=== PATIENT | male | born 1985 | race Caucasian/White ===

== ENCOUNTER 2018-09-12 18:13 | Emergency (ER) | payer OTHER ==
[2018-09-12 18:16] VITALS: BMI 26.2
[2018-09-12 18:20] VITALS: BP 130/71; PULSE 60; TEMP 98.3
[2018-09-12] MEDS ORDERED: morphine CARPU-JECT 4 MG/1 ML DISP.SYRIN IVPUSH ONE (18:21)
[2018-09-12] MEDS ORDERED: PIPERACILLIN/TAZOB 4.5 GM 4.5 GM in DEXTROSE 5%-WATER 100 ML IVPB ONE (18:21)
[2018-09-12] MEDS ORDERED: PIPERACILLIN/TAZOBACTAM 4.5 GM VIAL IVPB ONE (18:25)
[2018-09-12] MEDS ORDERED: IBUPROFEN 600 MG TABLET (FP) PO ONE ×2 (18:31→18:50)
--- NOTE | 2018-09-12 18:38 | PDOC ---
History of Present Illness - General History Source: Patient <Kirsty Quiroga - Last Filed: 09/12/18 18:47> - General History Source: Patient Exam Limitations: No Limitations - History of Present Illness Initial Comments: 09/12/18 18:56 The patient is a 33 year old male with no significant past medical history, who presents to the emergency department today with multiple puncture wounds on his left palm and wrist after getting bitten by a pitbull while at work this evening. 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 Immediately after the injury, the patient washed the wounds with hand soap and rinsed with iodine before applying a pressure wrap. The patient reports some numbness to the thumb, first, and second fingers. He notes some swelling and has been applying ice. The patients last tetanus shot was on May 20 2011. He is very familiar with this dog who is a family pet and sees him regularly at the vet office. The dog is up to date on all his immunizations. Denies any fever, chills, nausea, vomiting. Denies lightheadedness, dizziness, chest pain. Allergies: NKA <Sultana Ann - Last Filed: 09/12/18 18:57> - General Chief Complaint: Bite Stated Complaint: DOG BITE Time Seen by Provider: 09/12/18 18:21 Past History - Past Medical History COPD: No - Suicide/Smoking/Psychosocial Hx Smoking History: Never smoked Hx Alcohol Use: Yes Drug/Substance Use Hx: No Substance Use Type: Alcohol <Kirsty Quiroga - Last Filed: 09/12/18 18:47> <Sultana Ann - Last Filed: 09/12/18 18:57> - Past Medical History Allergies/Adverse Reactions: Allergies Allergy/AdvReac Type Severity Reaction Status Date / Time No Known Allergies Allergy Verified 09/12/18 18:13 Home Medications: Ambulatory Orders Amoxicillin/Potassium Clav [Augmentin 875-125 Tablet] 1 each PO BID #20 tablet 09/12/18 Ibuprofen 600 mg PO QID PRN #30 tablet 09/12/18 Sulfamethoxazole/Trimethoprim [Bactrim Ds Tablet] 1 each PO BID #20 tablet 09/12 Review of Systems - Review of Systems Able to Perform ROS?: Yes Comments:: 09/12/18 18:56 See HPI. All other systems reviewed and unremarkable <Sultana Ann - Last Filed: 09/12/18 18:57> *Physical Exam - Vital Signs Last Vital Signs Temp Pulse Resp BP Pulse Ox 98.3 F 60 16 130/71 100 09/12/18 18:13 09/12/18 18:13 09/12/18 18:13 09/12/18 18:13 09/12/18 18:13 <Kirsty Quiroga - Last Filed: 09/12/18 18:47> - Vital Signs Last Vital Signs Temp Pulse Resp BP Pulse Ox 98.3 F 60 16 130/71 100 09/12/18 18:13 09/12/18 18:13 09/12/18 18:13 09/12/18 18:13 09/12/18 18:13 - Physical Exam Comments: 09/12/18 18:56 NAD EOMI, NORMA MMM, OP WNL NCAT, no midline cervical tenderness RRR, nl s1/s2, no m/r/g CTABL, no w/r/r Soft, NTND No edema, WWP, no rash Left hand: There are 3 punctate wounds to the thenar eminence. There is 1 abrasion to the pad of the thumb. There is a small < 1 cm laceration to the dorsum of the wrist. Capillary refill is in tact. Sensation intact. Full ROM of the fingers and wrist. There is swelling and ecchymosis to thenar aspect of wrist. Neuro grossly intact, gait WNL, moving all 4 A&O x 3, mood/affect WNL. <Sultana Ann - Last Filed: 09/12/18 18:57> ED Treatment Course - RADIOLOGY Radiology Studies Ordered: Category Date Time Status WRIST W/HAND-LEFT* [RAD] Stat Radiology 09/12/18 18:21 Ordered - Medications Given in the ED: ED Medications Discontinued Medications Generic Name Dose Route Start Last Admin Trade Name Freq PRN Reason Stop Dose Admin Morphine Sulfate 4 mg 09/12/18 18:21 09/12/18 18:36 Morphine Injection - IVPUSH 09/12/18 18:22 Not Given ONCE ONE <Bralow,Kirsty M - Last Filed: 09/12/18 18:47> - Medications Given in the ED: ED Medications Discontinued Medications Generic Name Dose Route Start Last Admin Trade Name Freq PRN Reason Stop Dose Admin Piperacillin Sod/Tazobactam 100 mls @ 200 mls/hr 09/12/18 18:21 09/12/18 18: 37 Sod 4.5 gm/ Dextrose IVPB 09/12/18 18:50 200 mls/hr ONCE ONE Administration Protocol Ibuprofen 600 mg 09/12/18 18:50 09/12/18 18:50 Motrin - PO 09/12/18 18:51 600 mg ONCE ONE Administration Morphine Sulfate 4 mg 09/12/18 18:21 09/12/18 18:36 Morphine Injection - IVPUSH 09/12/18 18:22 Not Given ONCE ONE <Sultana Ann - Last Filed: 09/12/18 18:57> Medical Decision Making - Medical Decision Making 09/12/18 18:37 33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 Pit bull, known pet, fully vaccinated, pt was performing an ultrasound on the dog. Copious irrigation and application of betadyne prior to ED arrival. - rads - tetanus is UTD (2010) - pain control - zosyn IV in ED, then DC w/ Augmentin - case discussed w/ Dr. Bennett from [facility]. If all unremrakble, OK for DC w/ close hand f/u on Friday. <Kirsty Quiroga - Last Filed: 09/12/18 18:47> *DC/Admit/Observation/Transfer - Discharge Dispostion Decision to Admit order: No <Kirsty Quiroga - Last Filed: 09/12/18 18:47> - Attestations Scribe Attestion: 09/12/18 18:57 Documentation prepared by ISAK Oliveira, acting as medical reimbursement manager for Kirsty Quiroga MD. <Sultana Ann - Last Filed: 09/12/18 18:57> Diagnosis at time of Disposition: Dog bite - Discharge Dispostion Disposition: HOME Condition at time of disposition: Good - Prescriptions Prescriptions: Amoxicillin/Potassium Clav [Augmentin 875-125 Tablet] 1 each PO BID #20 tablet Ibuprofen 600 mg PO QID PRN #30 tablet PRN Reason: Pain Sulfamethoxazole/Trimethoprim [Bactrim Ds Tablet] 1 each PO BID #20 tablet - Referrals Referrals: Markell Bennett MD [Staff Physician] - - Patient Instructions Printed Discharge Instructions: DI for Animal Bites Additional Instructions: Call Dr. Bennett' office on FRIDAY to schedule follow up for Friday or Friday. Please either see Dr. Bennett or return to an ER or Urgent Care on FRIDAY for a wound check. Return to the ER sooner for: fever increased redness/swelling redness streaking up arm very swollen, painful, stiff fingers pus drainage from wound(s) Keep wounds clean and dry. Wash well with soap and water 2x daily, apply antibiotic ointment and wrap with clean, dry dressing. ICE to reduce swelling Keep hand at or above level of heart as possible. prescriptions have been sent to your pharmacy: Ibuprofen for pain and inflammation Augmentin (antibiotic) Bactrim (antibiotic)
[2018-09-12] MEDS ORDERED: VANCOMYCIN 1,000 MG in DEXTROSE 5%-WATER - 250 ML IVPB ONE (18:47)
[2018-09-12] MEDS ORDERED: VANCOMYCIN 1,000 MG VIAL (RESTRICTED TO ID ONLY) ONE (18:51)
== END 2018-09-12 20:43 | disposition home or self-care (01) ==
LOC: FER 18:13
CPT/HCPCS: 73110-TC-LR-FY; 73130-TC-LR-FY; 99282-25

== ENCOUNTER 2018-09-16 11:05 | Emergency (ER) | payer OTHER ==
[2018-09-16 11:08] VITALS: BP 101/60; PULSE 66; TEMP 98.1; BMI 26.2
[2018-09-16] MEDS ORDERED: RABIES VACCINE (PCEC)/PF 2.5 UNIT/VIAL IM ONE (11:31)
--- NOTE | 2018-09-16 11:38 | PDOC ---
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 Patient was seen 4 days ago when he was bitten by the dog and was given IM antibiotics and sent home on by mouth Augmentin. Patient had been vaccinated in the past but does not recall last vaccination and was instructed by the Department of Health to get the rabies booster. Patient was instructed to get one passing today and the second one 3 days later. Patient reported and feeling better with no pain now. Timing/Duration: other (4 days) Past History - Past Medical History Allergies/Adverse Reactions: Allergies Allergy/AdvReac Type Severity Reaction Status Date / Time No Known Allergies Allergy Verified 09/12/18 18:13 Home Medications: Ambulatory Orders Amoxicillin/Potassium Clav [Augmentin 875-125 Tablet] 1 each PO BID #20 tablet 09/12/18 Ibuprofen 600 mg PO QID PRN #30 tablet 09/12/18 Sulfamethoxazole/Trimethoprim [Bactrim Ds Tablet] 1 each PO BID #20 tablet 09/12 COPD: No - Suicide/Smoking/Psychosocial Hx Smoking History: Never smoked Hx Alcohol Use: Yes Drug/Substance Use Hx: No Substance Use Type: Alcohol Review of Systems - Review of Systems Able to Perform ROS?: Yes Is the patient limited Cymro proficient: No Constitutional: No: Chills, Fever, Weakness Respiratory: No: Symptoms reported Cardiac (ROS): No: Symptoms Reported ABD/GI: No: Symptoms Reported Musculoskeletal: No: Joint Swelling, Muscle Pain, Muscle Weakness, Joint Stiffness All Other Systems: Reviewed and Negative *Physical Exam - Vital Signs Last Vital Signs Temp Pulse Resp BP Pulse Ox 98.1 F 66 14 101/60 99 09/16/18 11:07 09/16/18 11:07 09/16/18 11:07 09/16/18 11:07 09/16/18 11:07 - Physical Exam Comments: 09/16/18 11:36 GENERAL: Well developed, well nourished. Awake and alert. No acute distress. CARDIOVASCULAR: Regular rate and rhythm. No murmurs, rubs, or gallops. PULMONARY: No evidence of respiratory distress. Lungs clear to auscultation bilaterally. No wheezing, rales or rhonchi. ABDOMINAL: Soft. Non-tender. Non-distended. No rebound or guarding. No organomegaly. Normoactive bowel sounds MUSCULOSKELETAL : Multiple small puncture wounds to teresa aspect and dorsal aspect of left hand. No bleeding from site. No evidence of wound dehiscence. No evidence of wound infection NEUROLOGICAL: Alert, awake, appropriate. No motor deficits in the lower extremities. Gait is normal without ataxia. PSYCHIATRIC: Cooperative. Good eye contact. Appropriate mood and affect. General Appearance: Yes: Nourished, Appropriately Dressed. No: Apparent Distress Medical Decision Making - Medical Decision Making 09/16/18 11:37 Patient with no sig Past medical history present for rabies vaccines status post being bit by dog 4 days ago. Patient sent by [facility] for Pureshield vaccine rabies vaccine ordered. Patient to follow-up in 3 days for second dose of vaccine. *DC/Admit/Observation/Transfer Diagnosis at time of Disposition: Need for rabies vaccination Dog bite Qualifiers: Encounter type: subsequent encounter Qualified Code(s): W54.0XXD - Bitten by dog, subsequent encounter - Discharge Dispostion Disposition: HOME Condition at time of disposition: Stable Decision to Admit order: No - Referrals Referrals: Wilfredo Tompkins [Primary Care Provider] - - Patient Instructions Printed Discharge Instructions: DI for Animal Bites Additional Instructions: Come back in 3 days for second dose of passing. Finish previously prescribed antibiotics. - Post Discharge Activity
== END 2018-09-16 11:48 | disposition home or self-care (01) ==
LOC: JERFT 11:05
PROC: 3E0234Z Introduction of Serum, Toxoid and Vaccine into Muscle, Percutaneous Approach (ICD-10-PCS; principal; 2018-09-16)
DX: Z23 Encounter for immunization (principal); Z20.3 Contact with and (suspected) exposure to rabies
CPT/HCPCS: 90675; 99281-25

== ENCOUNTER 2018-09-19 09:25 | Emergency (ER) | payer OTHER ==
[2018-09-19] MEDS ORDERED: RABIES VACCINE (PCEC)/PF 2.5 UNIT/VIAL IM ONE (09:28)
[2018-09-19 09:30] VITALS: BP 122/62; PULSE 74; BMI 26.1
--- NOTE | 2018-09-19 09:31 | PDOC ---
History of Present Illness - General Chief Complaint: Revisit,Rabies Injection Stated Complaint: RABIES VACCINATION Time Seen by Provider: 09/19/18 09:27 History Source: Patient Exam Limitations: No Limitations - History of Present Illness Initial Comments: 09/19/18 09:28 Pt is a 33 y/o M who presents for his second rabies vaccination today, s/p getting bit by a dog while working as a [employer]. Pt has no complaints at this time. Pt is still taking the previously prescribed augmentin. Pt states he has had the rabies series in the past, prior to going to [employer] school. Past History - Travel Traveled outside of the country in the last 30 days: No Close contact w/someone who was outside of country & ill: No - Past Medical History Allergies/Adverse Reactions: Allergies Allergy/AdvReac Type Severity Reaction Status Date / Time No Known Allergies Allergy Verified 09/19/18 09:26 Home Medications: Ambulatory Orders Amoxicillin/Potassium Clav [Augmentin 875-125 Tablet] 1 each PO BID #20 tablet 09/12/18 Ibuprofen 600 mg PO QID PRN #30 tablet 09/12/18 Sulfamethoxazole/Trimethoprim [Bactrim Ds Tablet] 1 each PO BID #20 tablet 09/12 COPD: No - Suicide/Smoking/Psychosocial Hx Smoking History: Never smoked Hx Alcohol Use: Yes Drug/Substance Use Hx: No Substance Use Type: Alcohol Review of Systems - Review of Systems Able to Perform ROS?: Yes Comments:: 09/19/18 09:30 CONSTITUTIONAL: Absent: fever, chills, diaphoresis, generalized weakness, malaise, loss of appetite HEENT: MUSCULOSKELETAL: Absent: myalgia, arthralgia, joint swelling SKIN: Present: scabs to L hand Absent: rash, itching, pallor NEUROLOGIC: Absent: headache, focal weakness or paresthesias, dizziness, unsteady gait, seizure, mental status changes, bladder or bowel incontinence PSYCHIATRIC: Absent: anxiety, depression, suicidal or homicidal ideation, hallucinations. Is the patient limited South African proficient: No *Physical Exam - Vital Signs Last Vital Signs Temp Pulse Resp BP Pulse Ox 74 14 122/62 98 09/19/18 09:27 11 09:27 09/19/18 09:27 09/19/18 09:27 - Physical Exam Comments: 09/19/18 09:30 GENERAL: The patient is awake, alert, and fully oriented, in no acute distress. HEAD: Normal with no signs of trauma. EYES: Pupils equal, round and reactive to light, extraocular movements intact, sclera anicteric, conjunctiva clear. EXTREMITIES: Normal range of motion, no edema. NEUROLOGICAL: Normal speech, normal gait PSYCH: Normal mood, normal affect. SKIN: Healing scabbed puncture wounds to the L palm (3 crenshaw) and dorsal hand ( 1 tia). Warm, Dry, normal turgor, no rashes noted. Medical Decision Making - Medical Decision Making 09/19/18 09:31 Pt is a 33 y/o M who presents for his second rabies vaccination today -Rabavert given and documented per EVELYN -Pt has prior rabies series. Given past immunization; pt only needs 2 doses. Second dose given today -Will DC home at this time; pt instructed to continue taking his antibiotics -I discussed the physical exam findings, ancillary test results and final diagnoses with the patient. I answered all of the patient's questions. The patient was satisfied with the care received and felt comfortable with the discharge plan and treatment plan. The Patient agrees to follow up with the primary care physician/specialist within 24-72 hours. Return precautions were given. *DC/Admit/Observation/Transfer Diagnosis at time of Disposition: Need for rabies vaccination - Discharge Dispostion Disposition: HOME Condition at time of disposition: Stable Decision to Admit order: No - Referrals Referrals: Wilfredo Tompkins [Primary Care Provider] - - Patient Instructions Printed Discharge Instructions: DI for Rabies Vaccine Additional Instructions: You received your second and final rabies vaccination today Continue taking your Augmentin as previously prescribed Return to the ED for any signs of infection, fevers, or if you have any changes in your symptoms - Post Discharge Activity Forms/Work/School Notes: Back to Work
== END 2018-09-19 09:47 | disposition home or self-care (01) ==
LOC: JERFT 09:25
PROC: 3E0234Z Introduction of Serum, Toxoid and Vaccine into Muscle, Percutaneous Approach (ICD-10-PCS; principal; 2018-09-19)
DX: Z20.3 Contact with and (suspected) exposure to rabies (principal); S61.452D Open bite of left hand, subsequent encounter; W54.0XXD Bitten by dog, subsequent encounter
CPT/HCPCS: 90675; 99281-25

== ENCOUNTER 2019-10-06 19:40 | Emergency (ER) | payer OTHER ==
[2019-10-06 19:45] VITALS: BP 141/80; PULSE 70; TEMP 98; BMI 26.6
--- NOTE | 2019-10-06 20:20 | PDOC ---
Documentation entered by Bernardo Holden SCRIBE, acting as scribe for Valeriy Carlin MD. Valeriy Carlin MD: This documentation has been prepared by the Navin ramirez Aiswarya, SCRIBE, under my direction and personally reviewed by me in its entirety. I confirm that the documentation accurately reflects all work, treatment, procedures, and medical decision making performed by me. 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 Patient has experienced some headache, nausea, lightheadedness, feeling that he is off. However patient said symptoms are improving as time goes by. He denies any vomiting or seizure activity. Patient's symptoms are consistent with a concussion. Discussed with patient the option of a CAT scan versus observation. Patient expressed concern about the amount of radiation involved in a CAT scan and would prefer to not have a CAT scan. Patient will be home tonight with his and was instructed as to what to look out for what to return for and what to be concerned about. The expressed understanding and was comfortable with the plan. 10/06/19 20:25 The patient is a 34 year old male, with no significant PMH, who presents to the emergency department with a headache that occurred today at 2:30pm. The patient states he is a credit collections rep and was head butted by a dog at work today. He currently endorses associated symptoms of pain to the right side of his head, headache, nausea, lightheadedness and leg weakness, relief with Aleve. Patients report symptoms are improving. The patient denies chest pain, shortness of breath, and dizziness. Denies fever, chills, vomit, diarrhea and constipation. Denies any vision changes or any other neurological deficit. PAST MEDICAL HISTORY: no significant history PAST SURGICAL HISTORY: no significant history FAMILY HISTORY: no pertinent history SOCIAL HISTORY: Pt lives with family and is employed. MEDICATIONS: reviewed ALLERGIES: As per nursing notes Adult ROS General: No fevers or chills, no weakness, no weight loss HEENT: No change in vision. No sore throat,. No ear pain CardioVascular: No chest pain or shortness of breath Respiratory:No cough, or wheezing. Gastrointestinal:+nausea. No vomiting, diarrhea or constipation, No rectal bleeding Genitourinary: No dysuria, hematuria, or frequency Musculoskeletal: No joint or muscle pain or swelling Neurologic: +headache. No vertigo, dizziness or loss of consciousness Psychiatric: nor depression Skin: No rashes or easy bruising Endocrine: no increased thirst or abnormal weight change Allergic: no skin or latex allergy All other systems reviewed and normal Basic PE GENERAL: The patient is awake, alert, and fully oriented, in no acute distress. HEAD: Normal with no signs of trauma. EYES: Pupils equal, round and reactive to light, extraocular movements intact, sclera anicteric, conjunctiva clear. EXTREMITIES: Normal range of motion, no edema. NEUROLOGICAL: Alert and oriented x3, nonfocal exam, grossly intact, normal gait. Normal speech. FUNDOSCOPY: Normal PSYCH: Normal mood, normal affect. SKIN: Warm, Dry, normal turgor, no rashes or lesions noted. Past History - Past Medical History Allergies/Adverse Reactions: Allergies Allergy/AdvReac Type Severity Reaction Status Date / Time No Known Allergies Allergy Verified 09/19/18 09:26 Home Medications: Ambulatory Orders Amoxicillin/Potassium Clav [Augmentin 875-125 Tablet] 1 each PO BID #20 tablet 09/12/18 Ibuprofen 600 mg PO QID PRN #30 tablet 09/12/18 Sulfamethoxazole/Trimethoprim [Bactrim Ds Tablet] 1 each PO BID #20 tablet 09/12 COPD: No - Psycho Social/Smoking Cessation Hx Smoking History: Unknown if ever smoked Have you smoked in the past 12 months: No Number of Cigarettes Smoked Daily: 0 Information on smoking cessation initiated: No Hx Alcohol Use: No Drug/Substance Use Hx: No Substance Use Type: Alcohol *Physical Exam - Vital Signs Last Vital Signs Temp Pulse Resp BP Pulse Ox 98 F 70 14 141/80 100 10/06/19 19:43 10/06/19 19:43 10/06/19 19:43 10/06/19 19:43 10/06/19 19:43 Discharge - Discharge Information Problems reviewed: Yes Clinical Impression/Diagnosis: Concussion Condition: Good Disposition: HOME - Admission No - Follow up/Referral - Patient Discharge Instructions Additional Instructions: For the pain take Tylenol 1000 mg as often this 3-4 times a day if needed. Someone to check on you once tonight during the night. You should be arousable to their normal level of arousability for that time of the night. If you have been vomiting, had a seizure, or you are unable to be aroused or there is a change in your mental status call 911 go back to the nearest emergency department. Take Tylenol as needed for pain. Continue any medications as previously prescribed by your physician. You should follow up with your primary doctor as soon as possible regarding today's emergency department visit. . Please make sure your doctor reviews the results of your emergency evaluation. Thank you for coming to the Emergency Department today for your care. It was a pleasure to see you today. Please note that your evaluation is INCOMPLETE until you follow-up with your doctor. - Post Discharge Activity
== END 2019-10-06 20:29 | disposition home or self-care (01) ==
LOC: FER 19:40
DX: F07.81 Postconcussional syndrome (principal); W54.1XXA Struck by dog, initial encounter; Y93.89 Activity, other specified; Y92.531 Health care provider office as the place of occurrence of the external cause; Y99.0 Civilian activity done for income or pay
CPT/HCPCS: 99282-25